=== PATIENT | male | born 2005 | race Caucasian/White ===

== ENCOUNTER 2024-09-20 12:10 | Emergency (ER) | payer SELFPAY ==
[2024-09-20] VITALS (7 sets, daily range): BP systolic 93–133; BP diastolic 54–91; BMI 20.2
[2024-09-20 12:27] LABS: Hematocrit 43.2 % (39.0-52.0); Hemoglobin 15.5 g/dL (13.0-18.0); Mean Corp Hgb Conc. 35.9 g/dL (33.0-37.0); Mean Corpuscular Volume 83.7 fL (80.0-94.0); Nucleated Red Blood Cells % 0 % (-); Platelet Count 177 10^3/uL (130-400); Red Cell Dist. Width 12.3 % (11.5-14.5)
[2024-09-20] MEDS: NSS 1000 IV ×2 (12:40→14:55)
[2024-09-20 12:42] LABS: ALT (SGPT) 12 U/L (0-50); AST (SGOT) 19 U/L (17-59); Albumin 5.2 g/dl (3.5-5.0); Alkaline Phosphatase 111 U/L (38-126); Blood Urea Nitrogen 15 mg/dl (9-20); Calcium 9.8 mg/dl (8.4-10.2); Carbon Dioxide 19 mmol/L (22-30); Chloride 106 mmol/L (98-107); Glucose 129 mg/dl (70-99); Potassium 3.4 mmol/L (3.5-5.1); Sodium 139 mmol/L (135-145); Total Protein 7.8 g/dl (6.3-8.2); eGFR > 60.00
[2024-09-20] MEDS: TORADOL 15 MG IV ×2 (12:42→15:11)
--- NOTE | 2024-09-20 12:46 | ED.GENMED ---
History of Present Illness
General
Chief Complaint: Flank Pain
Source: patient
Exam Limitations: none
Time Seen by Provider: 09/20/24 12:32
Nursing documentation reviewed up to this point in time: agreed with
History of Present Illness
History of Present Illness:
Note:
CHIEF COMPLAINT(S)
Right-side flank pain, difficulty urinating with hematuria, and chills.
HISTORY OF PRESENT ILLNESS
The patient is a 18-year-old male presenting with right-side flank pain that began yesterday and persisted into today. He reports difficulty urinating, accompanied by hematuria and chills. The patient has not taken any medication for the pain. He
has also been unable to eat today. His girlfriend is present during the assessment, and his mother, speaking via speakerphone, confirmed the timeline and persistence of pain.
CHRONIC MEDICAL CONDITIONS SIGNIFICANTLY AFFECTING CARE
The patient has a history of testicular torsion and anxiety, for which he takes medication.
MEDICATIONS
The patient is currently using a testosterone cream and takes medication for anxiety, which he has taken today.
PHYSICAL EXAM
- Mild right costovertebral angle tenderness.
- No testicular tenderness.
- Normal bilateral cremasteric reflexes.
Nursing notes reviewed, and vital signs reviewed.
PLAN
Further diagnostic evaluations and appropriate management for flank pain, hematuria, and chills.
DIFFERENTIAL DIAGNOSIS
The Differential Diagnosis includes, in no particular order and is not limited to:
- Renal calculi
- Urinary tract infection
- Pyelonephritis
- Testicular torsion
- Epididymitis
- Prostatitis
- Appendicitis
- Musculoskeletal pain
- Hydronephrosis
- Hematologic disorders
CARE-UPDATE
09/20/24 - 15:06
Patient shows improvement following administration of IV Toradol, IV Dilaudid, and IV fluids. CT scan indicates a 3mm right ureterovesical junction calculus and a punctate right nephric zone. Appendix appears normal, and there are no other abnormal
findings. Patient is stable for discharge post-administration of Toradol and IV fluids. Constipation noted on CT; recommending Miralax and increased fiber intake. Patient instructed to strain urine and consult urology if stone is not passed.
Prescriptions provided for Motrin 800 mg and Zofran.
Disposition:
SUMMARY OF ENCOUNTER
The patient, a 18-year-old male, presented to the emergency department with right-flank pain, difficulty urinating, hematuria, and chills. A CT scan identified a 3mm right ureterovesical junction calculus, confirming the presence of a distal
ureteral stone. Additionally, the scan indicated constipation. In the emergency department, the patient received intravenous medications for pain control and fluid administration, leading to symptom improvement. The patient was considered stable for
discharge after comprehensive evaluation.
DISPOSITION
Discharge.
ASSESSMENT
- Distal ureteral calculus.
- Constipation.
EMERGENCY TREATMENTS ADMINISTERED
- Intravenous Toradol (ketorolac).
- Intravenous Dilaudid (hydromorphone).
- Intravenous fluids.
PLAN
The patient was advised to strain urine to monitor stone passage and instructed to follow up with urology for further management if the stone does not pass naturally. Patient was also encouraged to increase fiber intake to address constipation.
INDEPENDENT REVIEW OF LABS AND INTERPRETATION OF TESTS
My independent interpretation of the CT scan is consistent with a 3mm right ureterovesical junction calculus and constipation.
PATIENT EDUCATION AND COUNSELING
The patient was educated regarding symptoms of kidney stones, the importance of straining urine, and the significance of following up with a urologist for continued management. Dietary modifications to alleviate constipation were discussed.
FOLLOW-UP INSTRUCTIONS
The patient was advised to follow up with a urologist and primary care physician for ongoing care and monitoring of the kidney stone and constipation.
MEDICATION RECONCILIATION
- Prescribed: Ibuprofen 800 mg (Motrin) as needed for pain.
- Ondansetron 4 mg (Zofran) as needed for nausea.
MEDICAL DECISION MAKING
- Number and Complexity of Problems Addressed: Chronic conditions affecting care include history of anxiety and testicular torsion. DDx: Renal calculi, urinary tract infection, pyelonephritis, testicular torsion, epididymitis, prostatitis,
appendicitis, musculoskeletal pain, hydronephrosis, hematologic disorders.
- Data:
- Category 1: Clinical information was obtained from an independent historian on speakerphone.
- Category 2: My independent interpretation of the CT scan identified a 3mm ureterovesical junction calculus and constipation.
- Risk:
Prescription medication was prescribed.
DIAGNOSIS
- Ureteral stone (ICD-10: N20.1).
- Constipation (ICD-10: K59.00).
Phy Exam
Physical Exam
Physical Exam:
.
Course
Orders/Labs/Results
Orders:
Orders
09/20/24 12:22
Complete Blood Count/With Diff Urgent
Comprehensive Metabolic Panel Urgent
09/20/24 12:35
0.9% Sodium Chloride 1000 ml [Nss] 1,000 ml IV BOLUS
Ketorolac [Toradol] 15 mg IV NOW STA
09/20/24 12:36
CT Abd/pel Without Iv Or Oral Urgent
Comment:
Reason For Exam: right flank pain, hematuria
09/20/24 12:48
Urinalysis Reflex To Culture Urgent
Date Specimen was Collected: 09/20/24
Time Specimen was Collected: 12:45
Urine Microscopic Reflex Cult Urgent
09/20/24 12:58
HYDROmorphone [Dilaudid] 0.5 mg IV NOW STA
Ondansetron Injectable [Zofran] 4 mg IV NOW STA
09/20/24 14:51
0.9% Sodium Chloride 1000 ml [Nss] 1,000 ml IV BOLUS
Ketorolac [Toradol] 15 mg IV NOW STA
Abnormal Lab Results
09/20/24 09/20/24
12:22 12:48
WBC 4.6 L 10^3/uL
(4.8-10.8)
Monocytes % 10.4 H %
(1.7-9.3)
Potassium 3.4 L mmol/L
(3.5-5.1)
Carbon Dioxide 19 L mmol/L
(22-30)
Glucose 129 H mg/dl
(70-99)
Total Bilirubin 1.7 H mg/dl
(0.2-1.3)
Albumin 5.2 H g/dl
(3.5-5.0)
Urine Ketones 1+ A
(Negative)
Ur Occult Blood Reflex 4+ A
(Negative)
Urine Urobilinogen 2+ A
(Neg - 1+)
Urine RBC 16-20 A /HPF
(0-2)
Urine Bacteria (Reflex) Few A
(Negative)
Urine Albumin (Reflex) 2+ A
(Neg - Trace)
09/20/24 12:22
09/20/24 12:22
Vital Signs
Initial and Last Documented VS:
Initial Vital Signs
Temp Pulse Resp BP Pulse Ox
97.5 F 133 16 93/54 98
09/20/24 12:14 09/20/24 12:14 09/20/24 12:14 09/20/24 12:14 09/20/24 12:14
Last Documented Vital Signs
Temp Pulse Resp BP Pulse Ox
97.5 F 100 16 127/70 100
09/20/24 12:14 09/20/24 13:15 09/20/24 13:15 09/20/24 12:54 09/20/24 13:15
*Pulse Oximetry
SaO2: 98
Oxygen Mode of Delivery: Room air
Patient hypoxic: no
*Critical Care Note
Total Time (30-74mins, 75-104mins- exclusive of procedures): Not Applicable
Update Note
Update Note:
Pt reevaluated multiple times to assess pain tolerance. He showed improvement throughout and is stable for discharge
ED Attending Note
-
Portions of this chart may have been created with voice recognition software.� Occasional wrong word or��sound alike� substitutions may have occurred due to the inherent limitations of voice recognition software.
Discharge Plan
Departure
Patient Disposition: Home (Routine Discharge)
Date of Disposition: 09/20/24
Time of Disposition: 15:07
Patient with high blood pressure during this ER visit?: Yes
Condition: Good
Discharge Problem:
Right distal ureteral calculus, Constipation
Instructions: Kidney Stones (DC), How to Strain Your Urine, Constipation in adults - ED discharge instructions, BLOOD PRESSURE
Prescriptions:
New
ibuprofen 800 mg tablet
800 mg PO Q8H PRN (Reason: Pain) Qty: 30 0RF
ondansetron 4 mg tablet,disintegrating
4 mg PO Q8H PRN (Reason: nausea and vomiting) 4 Days Qty: 10 0RF
Referrals:
Chago Carpio MD [Active, Urology] - Call in 1-3 days for appt
PRIVATE,PHYSICIAN [Family Provider, Internal Medicine]
Activity Restrictions/Additional Instructions:
Your bilirubin was slightly elevated today, this should repeated in 1 month by your primary care. Calcium was normal Your ct scan show a 3 mm stone near the bladder. It should pass on it's own. If it does not, follow up with the urologist. You
are also constipated. Use 1 scoop of miralax in fruit juice for 1 week to help with this. Return for any concerns.
Interventions
Interventions:
*Risk Screen - Suicide Last Done: 09/20/24 12:17
*General Assessment Last Done: 09/20/24 13:16
*Neglect/Abuse Screening Last Done: 09/20/24 12:17
*ED COVID-19 Vaccine History Last Done: 09/20/24 13:16
Discharge Date and Time
Print Language: SYRIAC
--- NOTE | 2024-09-20 12:55 | EDRN ---
Pt received in triage for flank pain, young female visitor at bedside, mother on speaker phone. Pt triaged, asked if he could lay down as he felt better that way. Pt was allowed to lay down in a closed protocol room. medicine teacher initiated an IV and
sent labs as patient waited for a room assignment. Shortly after, pt's visitor approached pod 1 desk and asked for a doctor. In the meantime, pt's mother arrived. Dr. Pruitt saw patient and ordered pain meds, fluid, CT scan. Pt was medicated as
ordered by chief juvenile probation officer. Pt's mother continuously asking for doctor, 'the medication didn't touch him'. At that point pt has been medicated [address] Pruitt back to see the patient. Mother becoming increasingly more agitated. Charge
RN notified. Pt was taken to room 7.
[2024-09-20 12:58] LABS: Urine Character Clear (Clear)
[2024-09-20] MEDS: ZOFRAN 4 MG IV ×2 (13:05→15:33)
[2024-09-20] MEDS: DILAUDID 0.5 MG IV ×2 (13:06→15:33)
[2024-09-20 13:23] LABS: Urine Squamous Cell 0-2 /LPF (Few)
[2024-09-20 13:24] LABS: Urine Red Blood Cell 16-20 /HPF (0-2)
[2024-09-20 13:25] LABS: Urine White Cell 0-2 /HPF (0-5)
== END 2024-09-20 16:39 | disposition home or self-care (01) ==
LOC: EMR 12:10
PROVIDERS: EMERGENCY PHYSICIAN Emergency Medicine
DX: N13.2 Hydronephrosis with renal and ureteral calculous obstruction (principal); K59.00 Constipation, unspecified
CPT/HCPCS: 99284; 96374; 96375; 96376; 96361; 74176; 80053; 81003; 81015; 85025